=== PATIENT | female | born 1945 | race Caucasian/White ===

== ENCOUNTER 2018-01-26 16:17 | Inpatient (IN) | payer MEDICARE, OTHER ==
[~2018-01-26] VITALS: Ht 160 cm; Wt 57.2 kg
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
[2018-01-26 17:16] LABS: APPEARANCE,URINE Clear (CLEAR); BILIRUBIN,URINE Negative (NEGATIVE); BLOOD, URINE Trace-intact Ery/uL (NEGATIVE); COLOR,URINE Yellow (YELLOW); KETONES,URINE Negative (NEGATIVE); LEUKOCYTE ESTERASE ,URINE Negative (NEGATIVE); NITRITE, URINE Negative (NEGATIVE); PROTEIN,URINE Negative (NEGATIVE); UGLUCOSE Negative (NEGATIVE); UROBILINOGEN,URINE 0.2 EU/dL (0.2)
[2018-01-26 17:24] LABS: BASOPHILS % (AUTO) 0.4 % (0.0-2.0); EOSINOPHILS % (AUTO) 2.5 % (0.0-6.0); HEMATOCRIT 37 % (33-45); LYMPHOCYTES # (AUTO) 2.2 /CMM (0.8-4.8); MEAN CORPUSCULAR HGB CONC 35 g/dl (31.0-36.0); MEAN CORPUSCULAR VOLUME 95 fL (82-100); MONOCYTES # (AUTO) 0.5 /CMM (0.1-1.30); MONOCYTES % (AUTO) 7.7 % (2.0-12.0); NEUTROPHILS # (AUTO) 3.3 /CMM (1.8-8.9); NEUTROPHILS % (AUTO) 54.4 % (43.0-81.0); PLATELET COUNT (AUTO) 192 /CMM (150-450); RDW COEFFICIENT OF VARIATION 12.1 (11.5-15.0); RED BLOOD CELL COUNT(AUTO) 3.84 MIL/uL (4.0-5.2); WHITE BLOOD COUNT (AUTO) 6.2 K/uL (4.3-11.0)
[2018-01-26 17:33] LABS: BACTERIA,URINE None seen /HPF (None Seen); SQUAMOUS EPITHELIAL CELL,UR Few /HPF (None Seen); WBC,URINE 0-2 /HPF (0-3)
[2018-01-26 17:37] LABS: CALCIUM, SERUM 8.8 mg/dL (8.5-10.1); CARBON DIOXIDE 28 mmol/L (21-32); CHLORIDE 106 mmol/L (98-107); CREATININE 0.9 mg/dL (0.6-1.3); GLUCOSE 131 mg/dL (74-106); POTASSIUM 3.4 mmol/L (3.5-5.1); SODIUM SERUM 140 mmol/L (136-145); UREA NITROGEN, BLOOD 20 mg/dL (7-18)
[2018-01-26 17:42] LABS: ALANINE AMINOTRANSFERASE 25 U/L (12-78); ALBUMIN 3.5 g/dL (3.4-5.0); ALKALINE PHOSPHATASE 126 U/L (46-116); ASPARTATE AMINOTRANSFERASE 19 U/L (15-37); BILIRUBIN,DIRECT 0.1 mg/dL (0.0-0.2); BILIRUBIN,TOTAL 0.5 mg/dL (0.2-1.0); TOTAL PROTEIN, SERUM 8.7 g/dL (6.4-8.2)
[2018-01-26 17:48] LABS: ACETAMINOPHEN < 2 ug/ml (10-30); ALCOHOL, BLOOD < 3 mg/dL (0-0); SALICYLATE < 2.8 mg/dL (2.8-20.0)
[2018-01-26] MEDS ORDERED: AMLO5TAB7 PO (17:48)
[2018-01-26] MEDS ORDERED: ATOR40TA PO (17:48)
[2018-01-26] MEDS ORDERED: LOSA100T15 PO (17:48)
[2018-01-26] MEDS ORDERED: ASPI-1152 PO (17:48)
[2018-01-26] MEDS ORDERED: METF-440 PO (17:48)
--- NOTE | 2018-01-26 18:49 | NUR ---
ARELY HILL- [phone]- CALL FOR ANY QUESTIONS OR BETO
--- NOTE | 2018-01-26 19:15 | NUR ---
BLAIR DONNELLY AT BEDSIDE TO ALL SANTAM[place]IA.
--- NOTE | 2018-01-26 19:21 | NUR ---
REPORT GIVEN TO GPS RN
[2018-01-26 20:30] VITALS: BP 145/59
[2018-01-26] MEDS ORDERED: MAGNESIUM HYDROXIDE 30 ML UDC PO PRN (21:00)
[2018-01-26] MEDS ORDERED: ACETAMINOPHEN 325 MG TABLET PO PRN (21:00)
[2018-01-26] MEDS ORDERED: TEMAZEPAM 7.5 MG CAPSULE PO PRN (21:00)
[2018-01-26] MEDS ORDERED: MAG HYDROX/AL HYDROX/SIMETH 30 ML UDC PO PRN (21:00)
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
[2018-01-27 06:44] LABS: BASOPHILS % (AUTO) 0.5 % (0.0-2.0); EOSINOPHILS % (AUTO) 4.1 % (0.0-6.0); HEMATOCRIT 40 % (33-45); HEMOGLOBIN 13.5 g/dL (11.5-14.8); LYMPHOCYTES # (AUTO) 2.1 /CMM (0.8-4.8); LYMPHOCYTES % (AUTO) 39.3 % (20.0-44.0); MEAN CORPUSCULAR HGB CONC 34 g/dl (31.0-36.0); MEAN CORPUSCULAR VOLUME 98 fL (82-100); MONOCYTES # (AUTO) 0.5 /CMM (0.1-1.30); MONOCYTES % (AUTO) 8.7 % (2.0-12.0); NEUTROPHILS # (AUTO) 2.5 /CMM (1.8-8.9); NEUTROPHILS % (AUTO) 47.4 % (43.0-81.0); PLATELET COUNT (AUTO) 207 /CMM (150-450); RDW COEFFICIENT OF VARIATION 13.2 (11.5-15.0); WHITE BLOOD COUNT (AUTO) 5.3 K/uL (4.3-11.0)
[2018-01-27 07:03] LABS: CHOLESTEROL 137 mg/dL (<200); HDL CHOLESTEROL 51 mg/dL (40-60); LDL 76 mg/dL (0-99); TRIGLYCERIDES 105 mg/dL (30-150)
[2018-01-27 07:06] LABS: ALANINE AMINOTRANSFERASE 26 U/L (12-78); ALBUMIN 3.5 g/dL (3.4-5.0); ALKALINE PHOSPHATASE 120 U/L (46-116); ASPARTATE AMINOTRANSFERASE 21 U/L (15-37); BILIRUBIN,TOTAL 0.6 mg/dL (0.2-1.0); CALCIUM, SERUM 8.3 mg/dL (8.5-10.1); CARBON DIOXIDE 24 mmol/L (21-32); CHLORIDE 105 mmol/L (98-107); CREATININE 0.8 mg/dL (0.6-1.3); GLUCOSE 131 mg/dL (74-106); POTASSIUM 3.6 mmol/L (3.5-5.1); SODIUM SERUM 139 mmol/L (136-145); TOTAL PROTEIN, SERUM 8.8 g/dL (6.4-8.2); UREA NITROGEN, BLOOD 20 mg/dL (7-18)
[2018-01-27 07:56] LABS: THYROID STIMULATING HORMONE 4.776 uIU/mL (0.358-3.74)
[2018-01-27 08:00] VITALS: BP 146/83
[2018-01-27] MEDS: METFORMIN 500 MG TABLET PO SCH (08:42)
[2018-01-27] MEDS: ATORVASTATIN 40 MG TABLET PO SCH (08:42)
[2018-01-27] MEDS: ASPIRIN EC 81 MG TABLET.DR PO SCH (08:42)
[2018-01-27] MEDS: AMLODIPINE BESYLATE 5 MG TABLET PO SCH (08:43)
[2018-01-27] MEDS: LOSARTAN POTASSIUM 50 MG TABLET PO SCH (08:43)
[2018-01-27] MEDS: SERTRALINE HCL 50 MG TABLET PO SCH (12:04)
[2018-01-27] MEDS: risperiDONE 0.25 MG TABLET PO SCH ×2 (12:06→17:36)
--- NOTE | 2018-01-27 12:26 | NUR ---
SW attempted to contact pts daughter Romina Morelos [phone] for collateral information and discharge planning. SW left voicemail for callback.
--- NOTE | 2018-01-27 13:40 | NUR ---
INITIAL DISCHARGE PLAN: Patient may need placement, SW attempted to contact pts daughter Romina [phone] to discuss discharge plan but was unable to reach and left voicemail for call back. SW will help form a safe and proper discharge in collaboration with pts family and MD.
[2018-01-27 16:00] VITALS: BP_SYST 124; BP_SYST 191; BP_DIAS 59; BP_DIAS 88
[2018-01-27 20:00] VITALS: BP 122/76
[2018-01-28 08:00] VITALS: BP 139/76
[2018-01-28] MEDS: ASPIRIN EC 81 MG TABLET.DR PO SCH (08:54)
[2018-01-28] MEDS: ATORVASTATIN 40 MG TABLET PO SCH (08:54)
[2018-01-28] MEDS: METFORMIN 500 MG TABLET PO SCH (08:55)
[2018-01-28] MEDS: AMLODIPINE BESYLATE 5 MG TABLET PO SCH (08:55)
[2018-01-28] MEDS: LOSARTAN POTASSIUM 50 MG TABLET PO SCH (08:55)
[2018-01-28] MEDS: risperiDONE 0.25 MG TABLET PO SCH ×3 (08:55→17:06)
[2018-01-28] MEDS: SERTRALINE HCL 50 MG TABLET PO SCH (08:55)
[2018-01-28 16:33] VITALS: BP 129/68
--- NOTE | 2018-01-28 19:30 | NUR ---
GPS RN NOTE, RECEIVED PATIENT AWAKE AND IN BED, NO S/S OR COMPLAINTS OF PAIN AT THIS TIME. PATIENT IS DISPLAYING NO S/S OF APPARENT DISTRESS AT THIS TIME. PATIENT BREATHING IS UNLABORED WITH EQUAL RISE AND FALL OF THE CHEST. PATIENT IS ALERT AND ORIENTED X 2 ON ROOM AIR WITH A SPO2 OF 95%. PATIENT IS MED COMPLIANT, DISORGANIZED, CONFUSED AT TIMES, AND NEEDS REDIRECTION. PATIENT DENIES SUICIDE IDEATIONS AND HOMICIDAL IDEATIONS AT THIS TIME. PATIENT ASSISTED WITH TURNING AND REPOSITIONING Q 2HRS AND PRN FOR COMFORT AND CIRCULATION. PATIENT HAS NO NEEDS AT THIS TIME. PATIENT EDUCATED ON THE USE OF THE CALL WHITNEY. PATIENT BED SIDE RAILS UP X 2 FOR SAFETY, BED IS LOCKED, LOW, AND I WILL CONTINUE TO MONITOR AND MAINTAIN SAFETY Q15 MIN WITH THE HELP OF STAFF.
[2018-01-28 20:00] VITALS: BP 105/65
[2018-01-29 08:00] VITALS: BP 146/63
[2018-01-29] MEDS: AMLODIPINE BESYLATE 5 MG TABLET PO SCH (08:39)
[2018-01-29] MEDS: risperiDONE 0.25 MG TABLET PO SCH ×2 (08:40→17:24)
[2018-01-29] MEDS: METFORMIN 500 MG TABLET PO SCH (08:40)
[2018-01-29] MEDS: LOSARTAN POTASSIUM 50 MG TABLET PO SCH (08:40)
[2018-01-29] MEDS: SERTRALINE HCL 50 MG TABLET PO SCH (08:40)
[2018-01-29] MEDS: ATORVASTATIN 40 MG TABLET PO SCH (08:40)
[2018-01-29] MEDS: ASPIRIN EC 81 MG TABLET.DR PO SCH (08:40)
[2018-01-29] MEDS: LORAZEPAM 0.5 MG TABLET PO PRN (11:46)
--- NOTE | 2018-01-29 11:46 | NUR ---
SDK-OF-VOJNF: GAVE ATIVAN 0.5 MG PO DUE TO PT REQUEST AND WILL CONTINUE TO MONITOR FOR EFFECTIVENESS OF MEDICATION
[2018-01-29 16:00] VITALS: BP 108/64
[2018-01-29 20:00] VITALS: BP 126/67
[2018-01-30] MEDS: METFORMIN 500 MG TABLET PO SCH (09:00)
[2018-01-30 09:41] VITALS: BP 152/88
--- NOTE | 2018-01-30 09:55 | NUR ---
SW attempted to contact pts daughter Romina Morelos [phone] for collateral information and discharge planning. SW left voicemail for callback.
--- NOTE | 2018-01-30 10:48 | NUR ---
NATALIE spoke with pts ben Cruz [phone] regarding discharge plan for pt. Per daughter pt needs placement, daughter asked pt to be referred to [facility] Address: [address] [place] [address] and also is interested in a locked facility for pt. Daughter stated that family is okay with whatever recommendation MD gives regarding placement for pt. NATALIE will refer pt to [facility] and also [facility] Address: [address] [place] [address] .
[2018-01-30] MEDS: SERTRALINE HCL 50 MG TABLET PO SCH (11:21)
[2018-01-30] MEDS: AMLODIPINE BESYLATE 5 MG TABLET PO SCH (11:22)
[2018-01-30] MEDS: LOSARTAN POTASSIUM 50 MG TABLET PO SCH (11:22)
[2018-01-30] MEDS: risperiDONE 0.25 MG TABLET PO SCH ×2 (11:22→17:25)
[2018-01-30] MEDS: ASPIRIN EC 81 MG TABLET.DR PO SCH (11:22)
[2018-01-30] MEDS: ATORVASTATIN 40 MG TABLET PO SCH (11:22)
[2018-01-30 16:55] VITALS: BP 126/54
[2018-01-30] MEDS: LORAZEPAM 0.5 MG TABLET PO PRN (20:31)
[2018-01-30 20:48] VITALS: BP 98/38
[2018-01-31 08:00] VITALS: BP 120/59
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
[2018-01-31] MEDS: ATORVASTATIN 40 MG TABLET PO SCH (09:11)
[2018-01-31] MEDS: risperiDONE 0.25 MG TABLET PO SCH ×2 (09:11→16:39)
[2018-01-31] MEDS: METFORMIN 500 MG TABLET PO SCH (09:12)
[2018-01-31] MEDS: AMLODIPINE BESYLATE 5 MG TABLET PO SCH (09:12)
[2018-01-31] MEDS: ASPIRIN EC 81 MG TABLET.DR PO SCH (09:12)
[2018-01-31] MEDS: LOSARTAN POTASSIUM 50 MG TABLET PO SCH (09:13)
[2018-01-31] MEDS: SERTRALINE HCL 50 MG TABLET PO SCH (09:13)
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
[2018-01-31 16:12] VITALS: BP 124/66
[2018-01-31 21:02] VITALS: BP 141/76
[2018-02-01 08:00] VITALS: BP 135/76
--- NOTE | 2018-02-01 08:31 | NUR ---
NATALIE attempted to contact pts son Darryn Morelos [phone] to remind him to bring DPOA paper work. NATALIE left voicemail and will call him back at a later time.
--- NOTE | 2018-02-01 08:38 | NUR ---
NATALIE spoke with pts son Darryn Morelos [phone] who stated he wants pt discharged as soon as possible and stated he would be bringing in DPOA paper work on this present day. NATALIE emphasized how important it is for him to bring in legal documentation in order to move forward with discharge. Addendum: 02/01/18 at 0841 by NAYAN ESTRADA Pts son understood.
[2018-02-01] MEDS: ATORVASTATIN 40 MG TABLET PO SCH (08:58)
[2018-02-01] MEDS: AMLODIPINE BESYLATE 5 MG TABLET PO SCH (08:58)
[2018-02-01] MEDS: METFORMIN 500 MG TABLET PO SCH (08:59)
[2018-02-01] MEDS: LOSARTAN POTASSIUM 50 MG TABLET PO SCH (08:59)
[2018-02-01] MEDS: SERTRALINE HCL 50 MG TABLET PO SCH (08:59)
[2018-02-01] MEDS: ASPIRIN EC 81 MG TABLET.DR PO SCH (08:59)
[2018-02-01] MEDS: risperiDONE 0.25 MG TABLET PO SCH ×2 (08:59→17:06)
--- NOTE | 2018-02-01 13:36 | NUR ---
NATALIE spoke with pts daughter Nancy [phone] regarding discharge plan for pt. NATALIE informed pts daughter that she was unaware that pt had a DPOA and was now coordinated discharge through pts DPOA/son Darryn. NATALIE stated to daughter that SW is authorized to speak to one family member and since Darryn is pts DPOA, discharge was being coordinated with him. NATALIE informed daughter that if she has questions regarding pts discharge to speak to pts DPOA. Pts daughter understood.
--- NOTE | 2018-02-01 14:14 | NUR ---
NATALIE received a phone call from pts daughter Nancy [phone] who was very hostile stating that pts son/DPOA Darryn got power of senior attorney against pts will and that he is trying to take advantage of her. Daughter was very upset and stated to SW that she should do her homework and investigate pts son's motives. NATALIE explained to pts daughter that due to hospital policy, and legal documentation pts son Darryn is responsible for pts care and therefore, all coordination has to be done through him. NATALIE also informed pts daughter that pt has verbalized that she wants to return home with her son. SW also informed pts daughter that if her and her siblings are against what pts son Darryn is doing then they should seek legal [place] outside of the hospital once pt is discharged. NATALIE explained that during pts hospitalization all coordination will be done with pts DPOA.
[2018-02-01 16:00] VITALS: BP 133/100
[2018-02-01 20:00] VITALS: BP 93/49
[2018-02-01 22:30] VITALS: BP 127/68
[2018-02-02 08:00] VITALS: BP 140/75
[2018-02-02] MEDS: ATORVASTATIN 40 MG TABLET PO SCH (08:40)
[2018-02-02] MEDS: risperiDONE 0.25 MG TABLET PO SCH ×2 (08:40→17:39)
[2018-02-02] MEDS: METFORMIN 500 MG TABLET PO SCH (08:40)
[2018-02-02] MEDS: SERTRALINE HCL 50 MG TABLET PO SCH (08:40)
[2018-02-02] MEDS: LOSARTAN POTASSIUM 50 MG TABLET PO SCH (08:40)
[2018-02-02] MEDS: AMLODIPINE BESYLATE 5 MG TABLET PO SCH (08:41)
[2018-02-02] MEDS: ASPIRIN EC 81 MG TABLET.DR PO SCH (08:41)
[2018-02-02 17:33] VITALS: BP 121/56
[2018-02-02 20:00] VITALS: BP 102/57
[2018-02-03 08:00] VITALS: BP 141/74
[2018-02-03 08:33] VITALS: BP 141/74
[2018-02-03] MEDS: SERTRALINE HCL 50 MG TABLET PO SCH (08:33)
[2018-02-03] MEDS: ATORVASTATIN 40 MG TABLET PO SCH (08:33)
[2018-02-03] MEDS: LOSARTAN POTASSIUM 50 MG TABLET PO SCH (08:33)
[2018-02-03] MEDS: AMLODIPINE BESYLATE 5 MG TABLET PO SCH (08:33)
[2018-02-03] MEDS: METFORMIN 500 MG TABLET PO SCH (08:33)
[2018-02-03] MEDS: risperiDONE 0.25 MG TABLET PO SCH (08:33)
[2018-02-03] MEDS: ASPIRIN EC 81 MG TABLET.DR PO SCH (08:34)
--- NOTE | 2018-02-03 12:15 | NUR ---
GPS/RN-NOTES PATIENT DISCHARGE TO HOME TODAY. DR. ABARCA AND SONU GUZMAN AWARE AND AGREED WITH ORDERS.PATIENT DID NOT VERBALIZE SI/HI,DENIES VISUAL/AUDITORY HALLUCINATIONS AT THE TIME OF DISCHARGE. ALL DISCHARGE MEDICATIONS WAS REVIEWED WITH PATIENT WITH UNDERSTANDING. RX WAS GIVEN TO THE PATIENT DEBI GOYAL AND ADVISED PATIENT TO F/U WITH PRIMARY MD AND PSYCHIATRIST IN A WEEK.PATIENT LEFT THE UNIT IN STABLE CONDITION ALERT ORIENTED X3,AMBULATORY WITH STEADY GAIT. PATIENT WAS TAPE DUPLICATOR BY DEBI GOYAL VIA PRIVATE CAR.PATIENT WAS ASSISTED BY [employer] DEGRADATION ANALYST STAFF IN THE LOBBY FOR SAFETY. PATIENT LEFT THE UNIT WITH ALL HER BELONGINGS.
--- NOTE | 2018-02-03 12:18 | NUR ---
DISCHARGE NOTE: [facility] [address] [facility] and was picked up by Son Darryn [phone]. Pts mood was euphoric with congruent affect. Pt denied suicidal/homicidal ideations and denied visual/auditory hallucinations. SW provided pt with a referral to [facility] [id number] [place] [address] [address] and faxed containing care paperwork to [phone] for an intake appointment. Pt will also follow up with [address] [address]. for follow-up. The multidisciplinary exitcare form was done, printed, signed, and given to the patient.
== END 2018-02-03 12:15 | disposition home or self-care (01) | DRG 885 ==
LOC: ER 16:35 → GPS 20:19
PROVIDERS: ADMIT Psychiatry & Neurology Psychiatry; ATTEND Psychiatry & Neurology Psychiatry
DX: F29 Unspecified psychosis not due to a substance or known physiological condition (principal); F02.81 Dementia in other diseases classified elsewhere, unspecified severity, with behavioral disturbance; E11.9 Type 2 diabetes mellitus without complications; I10 Essential (primary) hypertension; G30.9 Alzheimer's disease, unspecified; Z86.73 Personal history of transient ischemic attack (TIA), and cerebral infarction without residual deficits; E78.5 Hyperlipidemia, unspecified; Z79.82 Long term (current) use of aspirin; Z79.84 Long term (current) use of oral hypoglycemic drugs; Z79.899 Other long term (current) drug therapy; Z73.6 Limitation of activities due to disability; F32.9 Major depressive disorder, single episode, unspecified; R33.9 Retention of urine, unspecified; E03.9 Hypothyroidism, unspecified
CPT/HCPCS: 36415; 80048-TC; 80053-TC; 80061-TC; 80076-TC; 80305; 81000-TC; 83540-TC; 83735-TC; 84439-TC; 84443-TC; 84481; 85025-TC; A4606; G0480; Z7610